=== PATIENT | female | born 1960 | race African-American/Black ===

== ENCOUNTER 2016-07-25 19:33 | Emergency (ER) | payer SELFPAY ==
[2016-07-25 19:38] VITALS: BP 116/79; BMI 38.5
--- NOTE | 2016-07-25 19:56 | ED.ABDFE ---
HPI - Time seen Time seen: 19:50 - PCP Primary Care Physician: jenny - Complaint Chief Complaint Doctors Comments: Patient admits to having back pain a few years ago causing similar problems with left hip. Lumbar bar at Ls-S1 disc space narrowing, causing a radiculopathy Chief Complaint:: left flank pain, constant for the last 3 days. had blood in urine earlier this week. - Source History Provided: Patient - Mode of arrival Mode of Arrival: Ambulatory - Timing Onset of Chief Complaint: 07/22/16 PMH - PMH Past Medical History: Yes Past Medical History: Migraines, GERD Past Medical History Comment: chronic back pain Past Surgical History: Yes Surgical History: ELECTRICAL APPRENTICE Surgery, Ortho Surgery Past Surgical History Comment: left arm - nerve. bilateral shoulder surgery. cyst removed - ovaries - Family History History of Family Medical Conditions: Yes Family Medical History: Diabetes Mellitus, Coronary Artery Disease, Heart Failure, Hypertension - Social History Type of Tobacco Use: None Alcohol Use: None Do you use any recreational Drugs:: No Lives With: Family Lives Where: Home - infectious screening Have you traveled outside the country in the last 6 months?: No Isolation: Standard ROS - Review of Systems Eyes: No Symptoms Reported ENTM: No Symptoms Reported Respiratoy: No Symptoms Reported Cardiovascular: No Symptoms Reported Gastrointestinal/Abdominal: No Symptoms Reported Genitourinary: No Symptoms Reported Neurological: No Symptoms Reported Musculoskeletal: Hip (left hip pain radiating down left leg) Integumentary: No Symptoms Reported Hematologic/Lymphatic: No Symptoms Reported Endocrine: No Symptoms Reported Psychiatric: No Symptoms Reported All Other Systems: Reviewed and Negative PE - Vital Signs Vitals: Pulse Rate 79 Respiratory Rate 16 Blood Pressure 116/79 O2 Sat by Pulse Oximetry 95 - General Limitations: No Limitations General Appearance: Alert, In No Apparent Distress - Head Head Exam: Normal Inspection, Atraumatic - Eyes Eye exam: Normal Appearance, PERRL, EOMI - ENT ENT Exam: Normal Exam - Neck Neck Exam: Normal Inspection, Full ROM - Chest Chest Inspection: Normal Inspection - Respiratory Respiratory Exam: Normal Lung Sounds Bilat Respiratory Exam: Bilateral Clear to Auscultation - Cardiovascular Cardiovascular Exam: Regular Rate, Normal Rhythm - Abdominal Exam Abdominal Exam: Normal Inspection Abdominal Tenderness: negative: RUQ, RLQ, LUQ, LLQ, Epigastrium, Suprapubic, Diffuse, Mild, Moderate, Severe, Other - Rectal Rectal Exam: Deferred - Back Back Exam: Tenderness (lower lumbar middle) - Extremeties Extremities Exam: Normal Inspection, Full ROM - External Exam: Female: Deferred : Speculum Exam (Female): Deferred : Bimanual Exam (female): Deferred - Neurologic Neurological Exam: Alert, Oriented X3, CN II-XII Intact - Psychiatric Psychiatric Exam: Normal Affect - Skin Skin Exam: Warm, Dry, Intact MDM - Additional Information Obtained From Additional information provided by: Old Records (reviewed) - Diagnosis Discharge Problem: Degenerative joint disease (DJD) of lumbar spine Qualifiers: Spinal osteoarthritis complication: with radiculopathy Qualified Code(s): M47.26 - Other spondylosis with radiculopathy, lumbar region - Discharge Plan Condition: Stable - Follow ups/Referrals Follow ups/Referrals: Tejas Bear [Primary Care Provider] - 3 days - Instructions
[2016-07-25] MEDS ORDERED: TORADOL 60 MG VIAL IM ONE (19:58)
[2016-07-25] MEDS ORDERED: TORADOL 60 MG VIAL ONE (20:00)
== END 2016-07-25 20:24 | disposition home or self-care (01) ==
LOC: ER 19:43
DX: M47.26 Other spondylosis with radiculopathy, lumbar region (principal)
CPT/HCPCS: 96372; 99282; J1885

== ENCOUNTER 2016-09-13 09:25 | Emergency (ER) | payer SELFPAY ==
[2016-09-13 09:31] VITALS: BP 146/86; BMI 39.0
--- NOTE | 2016-09-13 09:51 | DR.GENAD ---
HPI - PCP Primary Care Physician: jenny - HPI Comment HPI Comment: HISTORY ARTHRITIS ON MEDICATION. STILL HURTING. NO TRAUMA. LEFT KNEE SWOLLEN AND PAINFULL TODAY. - Complaint/Symptoms Chief Complaint Doctors Comments: PAIN LOWER EXTREMITIES AND HIP TIMES TWO DAYS. PAIN LEFT SIDE STARTED ONE WEEK AGO. Chief Complaint:: patient stated that her right leg hurts from her hip area to her foot and has been hurting all week, and her left knee started hurting yesterday. no trauma or fall - Nurses notes reviewed Nurses Notes Review: Yes - Source History Provided: Patient - Mode of Arrival Mode of Arrival: Ambulatory - Timing Onset of Chief Complaint: 09/09/16 Came on: Suddenly - Duration Duration: Constant Duration: Days PMH - PMH Past Medical History: Yes Past Medical History: Arthritis, Migraines, GERD Past Surgical History: Yes Surgical History: THERAPEUTIC SUPPORT STAFF Surgery, Ortho Surgery - Family History History of Family Medical Conditions: Yes Family Medical History: Diabetes Mellitus, Coronary Artery Disease, Heart Failure, Hypertension - Social History Does patient currently use any type of tobacco product: No Have you used tobacco products in the last 12 months: No Type of Tobacco Use: None Does any household member use tobacco: No Alcohol Use: None Do you use any recreational Drugs:: No Lives With: Alone Lives Where: Home - infectious screening In the last 2 months have you had wt loss of >10#?: NO Have you had fever, night sweats or hemotysis?: No Have you traveled outside the country in the last 6 months?: No Isolation: Standard ROS - Review of Systems Constitutional: No Symptoms Reported Eyes: No Symptoms Reported ENTM: No Symptoms Reported Respiratoy: No Symptoms Reported Cardiovascular: No Symptoms Reported Gastrointestinal/Abdominal: No Symptoms Reported Genitourinary: No Symptoms Reported Neurological: Tingling (CHRONIC) Musculoskeletal: Back Pain, Joint Pain, Joint Swelling, Muscle Pain, Left, Ankle Integumentary: No Symptoms Reported Hematologic/Lymphatic: No Symptoms Reported Endocrine: No Symptoms Reported All Other Systems: Reviewed and Negative PE - Vital Signs Vitals: Temperature 98.3 F Pulse Rate 57 Respiratory Rate 16 Blood Pressure 146/86 O2 Sat by Pulse Oximetry 98 - General Limitations: No Limitations General Appearance: Alert - Head Head Exam: Normal Inspection - Eyes Eye exam: Normal Appearance - ENT ENT Exam: Normal External Ear Exam External Ear Exam: Normal External Inspection TM/Canal Exam: Bilateral Normal Nose Exam: Normal Nose Exam Mouth Exam: Normal Inspection Throat Exam: Normal Inspection - Neck Neck Exam: Normal Inspection - Chest Chest Inspection: Symmetric Chest Wall Rise - Respiratory Respiratory Exam: Normal Lung Sounds Bilat Respiratory Exam: Bilateral Clear to Auscultation - Cardiovascular Cardiovascular Exam: Regular Rate, Normal Rhythm, Normal Heart Sounds - Abdominal Exam Abdominal Exam: Normal Bowel Sounds, Soft. negative: Tenderness - Extremities Extremities Exam: Tenderness (LT KNEE), Joint Swelling (LT KNEE.) - Back Back Exam: Muscle Spasm, Paraspinal Tenderness, Vertebral Tenderness (LOWERBACK. ) - Neurologic Neurological Exam: Alert, Oriented X3 - Psychiatric Psychiatric Exam: Normal Affect, Normal Mood - Skin Skin Exam: Normal Color MDM - Additional Information Additional Information Obtained From: Family - Differential Diagnosis Differential Diagnosis: BACK PAIN, LT KNEE PAIN, ARTHRITIS, SCIATICA. Course - Treatment Treatment: SEE ORDERS. IM MED IN ED. PAIN DECREASING. - Reevaluation 1st: Improved - Education/Counseling Education/Counseling: Patient, Family, Education Educated On: Treatment, Diagnosis, Needs for Follow Up - Diagnosis Discharge Problem: Arthritis Sciatica Qualifiers: Laterality: bilateral Qualified Code(s): M54.31 - Sciatica, right side - Discharge Plan Disposition: 01 HOME, SELF-CARE Condition: Stable Prescriptions: Prednisone [Prednisone Tab 20 mg] 20 mg PO QAM #10 tab Ranitidine HCl [ZANTAC TAB 150 MG *] 150 mg PO BID #20 tab - Follow ups/Referrals Follow ups/Referrals: Tejas Bear [Primary Care Provider] - 3 days - Instructions Instructions: Back Pain, Adult, [id number], Arthritis, [id number], Knee Pain, [id number] Additional Instructions: RETURN TO ED IF WORSE.
[2016-09-13] MEDS ORDERED: NORFLEX INJ IM ONE (09:53)
[2016-09-13] MEDS ORDERED: TORADOL 60 MG VIAL IM ONE (09:53)
[2016-09-13] MEDS ORDERED: PREDNISONE TAB 20 MG PO ONE ×2 (09:53→10:03)
[2016-09-13] MEDS ORDERED: NORFLEX INJ ONE (09:55)
[2016-09-13] MEDS ORDERED: TORADOL 60 MG VIAL ONE (09:56)
--- NOTE | 2016-09-13 10:15 | RAD ---
HISTORY: Pain and swelling. Study: Three views of the left knee. Comparison: None. Findings: No evidence for acute cortical disruption or dislocation. Mild patellofemoral spurring and medial j oint space narrowing. No significant effusion. IMPRESSION: Chronic findings as above. Reported By:
== END 2016-09-13 10:39 | disposition home or self-care (01) | DRG 552 ==
LOC: ER 09:32
DX: M54.31 Sciatica, right side (principal); M13.89 Other specified arthritis, multiple sites
CPT/HCPCS: 73564; 96372; 99282; 99283; J1885; J2360; J7506

== ENCOUNTER → 2016-11-12 | Outpatient (CLI) | payer OTHER ==
--- NOTE | 2016-11-12 17:26 | MG ---
Examination: Bilateral screening mammogram. Clinical history: Routine screening. Technique: Digital CC and MLO views of both breasts were obtained. Computer aided detection analysis was performed and used during the interpretation. Comparison: 09/26/2015. Findings: The breasts are composed of scattered fibroglandular densities. Benign-appearing calcifications and v ascular calcifications are noted in the breasts bilaterally. High density material/cluster of calcifications is seen in the medial aspect of the left breast in th e extreme posterior depth on the CC view only. Findings may be artifactual in nature. Additional imag ing evaluation is recommended, with a repeat CC view of the left breast, a cleavage view, a spot comp ression magnification view in the CC projection and a lateral view of the left breast. No suspicious mass, area of architectural distortion or suspicious cluster of microcalcifications is noted in the right breast. Impression: 1. High density material/cluster of calcifications in the left breast, as described above. BI-RADS category 0 (ZERO) - ASSESSMENT INCOMPLETE; ADDITIONAL IMAGING IS NEEDED. Recommend immediate recall for additional imaging evaluation, as described above. Diagnostic CAD was utilized and reviewed. * 0 (ZERO) - ASSESSMENT INCOMPLETE; ADDITIONAL IMAGING IS NEEDED. * 0C - ASSESSMENT INCOMPLETE, NEEDS ADDITIONAL IMAGING EVALUATION AND/OR PRIOR MAMMOGRAMS FOR COMPARI SON. * 1/1 (ONE) - NEGATIVE. * 2/II (TWO) - BENIGN FINDINGS. * 3/III (THREE) - PROBABLY BENIGN FINDING; SHORT INTERVAL FOLLOW-UP SUGGESTED. * 4/IV (FOUR) - SUSPICIOUS ABNORMALITY; BIOPSY SHOULD BE CONSIDERED. * 5/V - HIGHLY SUSPICIOUS OF MALIGNANCY; BIOPSY SHOULD BE PERFORMED. * 6/ - KNOWN BIOPSY PROVEN MALIGNANCY-APPROPRIATE ACTION SHOULD BE TAKEN. A NEGATIVE X-RAY REPORT SHOULD NOT DELAY BIOPSY IF A DOMINANT OR CLINICALLY SUSPICIOUS MASS IS PRESENT; 4 TO 8 PERCENT OF CANCERS ARE NOT IDENTIFIED BY X-RAY. A NEGATIVE REPORT MAY REINFORCE THE CLINICAL IMPRESSION. ADENOSIS AND DENSE BREASTS MAY OBSCURE AN UNDERLYING NEOPLASM. Reported By:
== END | disposition home or self-care (01) ==
LOC: RAD 10:03
PROVIDERS: ATTEND Internal Medicine
DX: Z12.31 Encounter for screening mammogram for malignant neoplasm of breast (principal); R92.8 Other abnormal and inconclusive findings on diagnostic imaging of breast
CPT/HCPCS: 77067

== ENCOUNTER → 2016-11-21 | Outpatient (CLI) | payer OTHER ==
--- NOTE | 2016-11-21 15:13 | MG ---
HISTORY: Patient presents callback for question of artifact versus abnormal calcifications medial le ft breast. STUDY: Diagnostic mammogram left breast. Comparison: Multiple mammograms dating back to June 06, 2014. FINDINGS: Left CC , ML , cleavage , and spot magnification CC views left breast were obtained. Scattered fibro glandular tissue is seen to be present. No significant architectural distortion, mass or clustered m icrocalcifications can be observed to suggest malignancy. No skin thickening or nipple retraction is appreciated. No pathological lymphadenopathy can be identified. Benign-appearing calcifications ar e seen within the left breast. IMPRESSION: NO RADIOGRAPHIC EVIDENCE OF MALIGNANCY. ACR CATEGORY: 2 - benign findings. FOLLOW-UP EXAM 1 YEAR. Diagnostic CAD was utilized and reviewed. * 0 (ZERO) - ASSESSMENT INCOMPLETE; ADDITIONAL IMAGING IS NEEDED. * 1/1 (ONE) - NEGATIVE. * 2/II (TWO) - BENIGN FINDINGS. * 3/III (THREE) - PROBABLY BENIGN FINDING; SHORT INTERVAL FOLLOW-UP SUGGESTED. * 4/IV (FOUR) - SUSPICIOUS ABNORMALITY; BIOPSY SHOULD BE CONSIDERED. * 5/V - HIGHLY SUSPICIOUS OF MALIGNANCY; BIOPSY SHOULD BE PERFORMED. A NEGATIVE X-RAY REPORT SHOULD NOT DELAY BIOPSY IF A DOMINANT OR CLINICALLY SUSPICIOUS MASS IS PRESENT; 4 TO 8 PERCENT OF CANCERS ARE NOT IDENTIFIED BY X-RAY. A NEGA TIVE REPORT MAY REINFORCE THE CLINICAL IMPRESSION. ADENOSIS AND DENSE BREASTS MAY OBSCURE AN UNDERLY ING NEOPLASM. Reported By:
== END | disposition home or self-care (01) ==
LOC: RAD 13:42
PROVIDERS: ATTEND Internal Medicine
DX: R92.8 Other abnormal and inconclusive findings on diagnostic imaging of breast (principal)
CPT/HCPCS: 77065

== ENCOUNTER 2017-01-27 12:03 | Emergency (ER) | payer SELFPAY ==
[2017-01-27 12:12] VITALS: BP 124/76; BMI 38.5
--- NOTE | 2017-01-27 13:28 | DR.GENAD ---
HPI - PCP Primary Care Physician: jenny - HPI Comment HPI Comment: HISTORY ARTHRITIS. INCREASING PAIN AND SWELLING PAST 4 DAYS. NO TRAUMA. NO FEVER. GETTING WORSE. - Complaint/Symptoms Chief Complaint Doctors Comments: INCREASING LOW BACK PAIN, LEFT KNEE, ANKLE AND FOOT PAIN FOR FEW DAYS. Chief Complaint:: joan stated she has been having left foot pain and left knee pain and lower back pain for 4 days - Nurses notes reviewed Nurses Notes Review: Yes - Source History Provided: Patient, Family Member - Mode of Arrival Mode of Arrival: Ambulatory - Timing Onset of Chief Complaint: 01/24/17 Came on: Gradually - Duration Duration: Constant Duration: Days - Severity Severity: Moderate PMH - PMH Past Medical History: Yes Past Medical History: Arthritis, Migraines, GERD Past Surgical History: Yes Surgical History: MACHINING SUPERVISOR Surgery, Ortho Surgery - Family History History of Family Medical Conditions: Yes Family Medical History: Diabetes Mellitus, Coronary Artery Disease, Heart Failure, Hypertension - Social History Does patient currently use any type of tobacco product: No Have you used tobacco products in the last 12 months: No Type of Tobacco Use: None Does any household member use tobacco: No Alcohol Use: None Do you use any recreational Drugs:: No Lives With: Family Lives Where: Home - infectious screening In the last 2 months have you had wt loss of >10#?: NO Have you had fever, night sweats or hemotysis?: No Have you traveled outside the country in the last 6 months?: No Isolation: Standard ROS - Review of Systems Constitutional: Weakness, Fatigue. negative: Chills, Fever Eyes: No Symptoms Reported. negative: Eye Pain, Discharge ENTM: No Symptoms Reported. negative: Ear Pain, Nose Discharge, Nose Congestion , Throat Pain Respiratoy: Short of Breath (ON EXERTION). negative: Non-Productive Cough, Stridor, Wheezing, Hemoptysis Cardiovascular: No Symptoms Reported Gastrointestinal/Abdominal: No Symptoms Reported Genitourinary: No Symptoms Reported Neurological: No Symptoms Reported Musculoskeletal: Knee, Ankle, Foot (SWELLING AND PAIN.) Integumentary: No Symptoms Reported Hematologic/Lymphatic: Easy Bleeding, Easy Bruising Endocrine: No Symptoms Reported All Other Systems: Reviewed and Negative PE - Vital Signs Vitals: Temperature 98.4 F Pulse Rate 71 Respiratory Rate 16 Blood Pressure 124/76 O2 Sat by Pulse Oximetry 95 - General Limitations: No Limitations General Appearance: Alert - Head Head Exam: Normal Inspection - Eyes Eye exam: Normal Appearance - ENT ENT Exam: Normal External Ear Exam TM/Canal Exam: Bilateral Normal Nose Exam: Normal Nose Exam Mouth Exam: Normal Inspection Throat Exam: Normal Inspection - Neck Neck Exam: Trachea Midline - Chest Chest Inspection: Symmetric Chest Wall Rise - Respiratory Respiratory Exam: Normal Lung Sounds Bilat Respiratory Exam: Bilateral Clear to Auscultation - Cardiovascular Cardiovascular Exam: Regular Rate, Normal Rhythm, Normal Heart Sounds - Abdominal Exam Abdominal Exam: Normal Bowel Sounds, Soft. negative: Tenderness - Extremities Extremities Exam: Normal Inspection - Back Back Exam: Normal Inspection - Neurologic Neurological Exam: Alert, Oriented X3 - Psychiatric Psychiatric Exam: Normal Affect, Normal Mood - Skin Skin Exam: Normal Color MDM - Additional Information Additional Information Obtained From: Family - Differential Diagnosis Differential Diagnosis: ARTHRITIS, BURSITIS, TENDINITIS, SPRAIN, FRACTURE Course - Treatment Treatment: SEE ORDERS. - Education/Counseling Education/Counseling: Patient, Family, Education Educated On: Treatment, Diagnosis, Needs for Follow Up ROR - XRAY XRAY Interpreted by: Radiologist XRAY Findings: REPORT DICUSS WITH PATIENT AND HER DAUGHTER. - Diagnosis Discharge Problem: Foot pain, left Sciatica Qualifiers: Laterality: bilateral Qualified Code(s): M54.31 - Sciatica, right side; M54.32 - Sciatica, left side; M54.32 - Sciatica, left side Knee sprain Qualifiers: Encounter type: initial encounter Involved ligament of knee: unspecified ligament Laterality: left Qualified Code(s): S83.92XA - Sprain of unspecified site of left knee, initial encounter Ankle sprain Qualifiers: Encounter type: initial encounter Involved ligament of ankle: unspecified ligament Laterality: left Qualified Code(s): S93.402A - Sprain of unspecified ligament of left ankle, initial encounter - Discharge Plan Disposition: HOME, SELF-CARE Condition: Stable Prescriptions: Cyclobenzaprine HCl [FLEXERIL 10 MG *] 10 mg PO TID #20 tab - Follow ups/Referrals Follow ups/Referrals: Tejas Bear [Primary Care Provider] - 3 days - Instructions Instructions: Osteoarthritis, Acute Ankle Sprain With Phase I Rehab-SportsMed, Back Pain, Adult, [id number], Knee Pain, [id number] Additional Instructions: RETURN TO ED IF WORSE.
[2017-01-27] MEDS ORDERED: TORADOL 60 MG VIAL IM ONE (13:41)
[2017-01-27] MEDS ORDERED: TORADOL 60 MG VIAL ONE (13:50)
--- NOTE | 2017-01-27 14:15 | RAD ---
Examination: Left ankle, three views History: Pain no injury Findings: There is no evidence for fracture, dislocation or joint space asymmetry. Articular surfaces are smooth and well defined. No pathologic calcification is seen. Impression: No significant or acute osseous abnormality noted. Reported By:
--- NOTE | 2017-01-27 14:16 | RAD ---
Examination: Left foot, three views History: Pain and swelling, no injury Findings: There is no evidence for trauma, arthropathy, bone destruction or pathologic calcification. Impression: No significant or acute abnormality demonstrated. Reported By:
--- NOTE | 2017-01-27 14:17 | RAD ---
Examination: Left knee, Two views History: Pain and swelling, no injury Findings: No definite fracture, dislocation, patellar displacement or synovial effusion. Impression: No acute or significant abnormality identified. Reported By:
== END 2017-01-27 14:36 | disposition home or self-care (01) ==
LOC: ER 12:15
DX: S83.92XA Sprain of unspecified site of left knee, initial encounter (principal); S93.402A Sprain of unspecified ligament of left ankle, initial encounter; M54.31 Sciatica, right side; M54.32 Sciatica, left side; M79.672 Pain in left foot; Y92.9 Unspecified place or not applicable
CPT/HCPCS: 73560; 73610; 73630; 96372; 99282; J1885

== ENCOUNTER 2017-07-24 09:57 | Day surgery (SDC) | payer MEDICAID ==
[2017-07-24] MEDS ORDERED: D5 LR 1000 ML 1,000 ML IV ONE (10:59)
[2017-07-24] MEDS ORDERED: DIPRIVAN VIAL 20 ML ONE ×2 (11:45→12:11)
[2017-07-24 13:01] VITALS: BP 120/70
== END 2017-07-24 12:55 | disposition home or self-care (01) ==
LOC: SURG1 09:57
PROVIDERS: ATTEND Internal Medicine Gastroenterology
PROC: 0DB68ZX Excision of Stomach, Via Natural or Artificial Opening Endoscopic, Diagnostic (ICD-10-PCS; principal; 2017-07-24 13:00)
PROC: 0DJ08ZZ Inspection of Upper Intestinal Tract, Via Natural or Artificial Opening Endoscopic (ICD-10-PCS; principal; 2017-07-24 13:00)
PROC: 0DB88ZX Excision of Small Intestine, Via Natural or Artificial Opening Endoscopic, Diagnostic (ICD-10-PCS; principal; 2017-07-24 13:00)
DX: R10.13 Epigastric pain (principal); R11.0 Nausea; K21.9 Gastro-esophageal reflux disease without esophagitis; R10.12 Left upper quadrant pain; Z79.1 Long term (current) use of non-steroidal anti-inflammatories (NSAID); K25.9 Gastric ulcer, unspecified as acute or chronic, without hemorrhage or perforation; K29.60 Other gastritis without bleeding; K20.8 Other esophagitis
CPT/HCPCS: A4217; J3490; J7120

== ENCOUNTER 2017-07-31 09:23 | Day surgery (SDC) | payer MEDICAID ==
[~2017-07-31 09:23] MED LIST: NS 100 ML IV 100 ML IV ONE
[2017-07-31] MEDS ORDERED: D5 LR 1000 ML 1,000 ML IV ONE (09:47)
[2017-07-31] MEDS ORDERED: DIPRIVAN VIAL 20 ML ONE (11:18)
[2017-07-31 11:59] VITALS: BP 105/72
== END 2017-07-31 12:02 | disposition home or self-care (01) ==
LOC: SURG1 09:23
PROVIDERS: ATTEND Internal Medicine Gastroenterology
PROC: 0DJD8ZZ Inspection of Lower Intestinal Tract, Via Natural or Artificial Opening Endoscopic (ICD-10-PCS; principal; 2017-07-31 12:45)
PROC: 0DBN8ZX Excision of Sigmoid Colon, Via Natural or Artificial Opening Endoscopic, Diagnostic (ICD-10-PCS; principal; 2017-07-31 12:45)
DX: K62.89 Other specified diseases of anus and rectum (principal); K63.5 Polyp of colon; K57.30 Diverticulosis of large intestine without perforation or abscess without bleeding; K64.0 First degree hemorrhoids; Z86.010 Personal history of colon polyps
CPT/HCPCS: A4222; A4217; J3490; J7120